=== PATIENT | male | born 1970 | race Caucasian/White ===

== ENCOUNTER 2021-04-24 10:47 | Outpatient (CLI) | payer OTHER, SELFPAY ==
[2021-04-24 11:05] VITALS: BP 112/69; PULSE 100; RESP 20; TEMP 38.6; O2SAT 94; BMI 28.7
[2021-04-24 11:50] VITALS: BP 104/66; PULSE 102; RESP 18; O2SAT 92
[2021-04-24 12:50] VITALS: BP 100/64; PULSE 100; RESP 18; TEMP 38.4; O2SAT 93
--- NOTE | 2021-04-29 14:48 | PC.SOCIAL ---
antibody infusion follow up call better, not 100% but much better, started with congestion, fatigue, and fever
== END 2021-04-24 10:48 | disposition home or self-care (01) ==
LOC: OPS 10:49
PROVIDERS: Visit Provider Family Medicine
DX: U07.1 COVID-19 (principal)
CPT/HCPCS: 96365